=== PATIENT | female | born 1960 | race Caucasian/White ===

== ENCOUNTER → 2020-06-02 | Outpatient (CLI) | payer BC | LOC: EMI 08:50 | DX: G35 Multiple sclerosis (principal); M62.838 Other muscle spasm; R20.0 Anesthesia of skin; G95.0 Syringomyelia and syringobulbia; M79.604 Pain in right leg; M50.320 Other cervical disc degeneration, mid-cervical region, unspecified level | CPT/HCPCS: 70553; 72156; A9577 ==